=== PATIENT | female | born 1965 | race Caucasian/White ===

== ENCOUNTER 2021-03-21 13:47 | Emergency (ER) | payer SELFPAY ==
[~2021-03-21] VITALS: Ht 157.5 cm; Wt 69.9 kg
[2021-03-21 13:48] VITALS: BP 166/88
[2021-03-21] MEDS ORDERED: ONDANSETRON 4 MG/2 ML VIAL IVP ONE (16:00)
[2021-03-21] MEDS ORDERED: NACL 0.9% 1,000 ML IV ONE (16:00)
[2021-03-21] MEDS ORDERED: KETOROLAC 30 MG/ML VIAL IVP ONE (16:00)
[2021-03-21 16:31] LABS: BASOPHILS # (AUTO) 0.1 K/uL (0.00-0.22); BASOPHILS % (AUTO) 1.4 % (0.0-2.0); EOSINOPHILS % (AUTO) 0.8 % (0.0-4.0); HEMATOCRIT 43.4 % (36-48); HEMOGLOBIN 14.9 g/dL (12.0-16.0); MEAN CORPUSCULAR HEMOGLOBIN 31 pg (27-31); MEAN CORPUSCULAR HGB CONC 34 g/dL (33-37); MEAN CORPUSCULAR VOLUME 89.5 fL (80-94); MONOCYTES # (AUTO) 0.4 K/uL (0.8-1.0); MONOCYTES % (AUTO) 11.4 % (1.7-9.3); NEUTROPHILS # (AUTO) 2.3 K/uL (1.8-7.7); NEUTROPHILS % (AUTO) 59.4 % (42.2-75.2); PLATELET COUNT (AUTO) 275 K/uL (140-450); RED BLOOD CELL COUNT(AUTO) 4.85 MIL/uL (4.20-5.40); RED CELL DISTRIBUTION WIDTH 12.5 % (11.6-13.7); WHITE BLOOD COUNT (AUTO) 3.9 K/uL (4.8-10.8)
[2021-03-21 16:47] LABS: ANION GAP 16.5 (8-16); CREATININE 0.7 mg/dL (0.6-1.3); POTASSIUM 3.5 mmol/L (3.5-5.1)
[2021-03-21] MEDS ORDERED: IBUP-2213 PO (17:16)
[2021-03-21] MEDS ORDERED: ACET-8386 PO (17:16)
[2021-03-21] MEDS ORDERED: ONDA8TAB87 PO (17:16)
[2021-03-21] MEDS ORDERED: ATA25 PO (17:16)
[2021-03-21 18:27] VITALS: BP 160/80
== END 2021-03-21 18:27 | disposition home or self-care (01) ==
LOC: MED 13:47
DX: R11.2 Nausea with vomiting, unspecified (principal); R51.9 Headache, unspecified; R19.7 Diarrhea, unspecified; K21.9 Gastro-esophageal reflux disease without esophagitis; I10 Essential (primary) hypertension
CPT/HCPCS: 36415; 80048; 81002; 81025; 85025; 96361; 96374; 96375; 99284; J1885; J2405; J7030